=== PATIENT | male | born 1985 | race African-American/Black ===

== ENCOUNTER 2016-04-10 11:21 | Emergency (ER) | payer OTHER ==
[2016-04-10] MEDS ORDERED: ONDANSETRON 4MG/2ML VIAL (J2405) As Ordered ONE (12:39)
[2016-04-10] MEDS ORDERED: KETOROLAC 30 MG/ML VIAL (J1885) As Ordered ONE (12:39)
[2016-04-10 12:45] LABS: BASO % 0.3 % (0.0-1.0); EOS # 0.1 K/mm3 (0.0-0.50); EOS % 2.2 % (0.0-3.0); LARGE UNSTAINED CELL # 0.1 K/mm3 (0.0-0.4); LARGE UNSTAINED CELL % 2.4 % (0.0-4.0); LYMPH # 1.8 K/mm3 (1.5-6.5); LYMPH % 49.6 % (24.0-44.0); MEAN CORPUSCULAR HEMOGLOBIN 28.7 pg (27.0-33.0); MEAN CORPUSCULAR HGB CONC 33.3 g/dl (32.0-36.5); MEAN CORPUSCULAR VOLUME 86.2 fl (80.0-96.0); MONO # 0.2 K/mm3 (0.0-0.8); MONO % 4.6 % (0.0-5.0); NEUTROPHILS # 1.5 K/mm3 (1.8-7.7); NEUTROPHILS % 40.9 % (36.0-66.0); PLATELET COUNT, AUTOMATED 236 k/mm3 (150-450); WHITE BLOOD COUNT 3.6 K/mm3 (4.0-10.0)
[2016-04-10 13:11] LABS: ALBUMIN/GLOBULIN RATIO 0.95 (1.00-1.93); ALKALINE PHOSPHATASE 48 U/L (45-117); ALT/SGPT 53 U/L (12-78); ANION GAP 4 MEQ/L (8-16); AST/SGOT 25 U/L (15-37); BILIRUBIN,DIRECT 0.1 MG/DL (0.0-0.2); BILIRUBIN,TOTAL 0.5 MG/DL (0.2-1.0); BLOOD UREA NITROGEN 14 MG/DL (7-18); CALCIUM LEVEL 8.9 MG/DL (8.5-10.1); CARBON DIOXIDE LEVEL 33 MEQ/L (21-32); CHLORIDE LEVEL 101 MEQ/L (98-107); CREATININE FOR GFR 1.34 MG/DL (0.70-1.30); GLOMERULAR FILTRATION RATE > 60.0 (>60); GLUCOSE, FASTING 81 MG/DL (70-105); POTASSIUM SERUM 4.3 MEQ/L (3.5-5.1); SODIUM LEVEL 138 MEQ/L (136-145); TOTAL PROTEIN 8.2 GM/DL (6.4-8.2)
[2016-04-10] MEDS ORDERED: ISOVUE-370 76% 100ML VIAL (Q9967) As Ordered ONE (13:21)
[2016-04-10] MEDS ORDERED: MORPHINE 2 MG/ML 1ML SYRINGE As Ordered ONE ×2 (13:34→13:41)
--- NOTE | 2016-04-10 14:20 | REP ---
CT ABDOMEN AND PELVIS WITH IV BUT WITHOUT ORAL CONTRAST: HISTORY: Appendicitis. CT contrast dose: 100 mL of Isovue [address] FINDINGS: Preliminary scruff worker radiograph views are unremarkable. The lung bases are clear. There is no evidence of pleural effusion or upper abdominal ascites. The liver and spleen are normal in size and homogeneous in texture on postcontrast imaging. No adrenal lesion is seen. No pancreatic abnormality is noted. The gallbladder is unremarkable. Kidneys enhance symmetrically are morphologically intact. No retroperitoneal mass or adenopathy is observed. A normal appendix is seen over the right pelvic sidewall. No CT evidence of appendicitis is seen. Seminal vesicles, prostate and urinary bladder are unremarkable. No abdominal wall defect is seen. Bone window settings show no bony destructive lesion. There is a small benign exostosis of the right iliac crest posteriorly. IMPRESSION: Normal appendix seen. No CT evidence of appendicitis. No acute intra-abdominal abnormality. Signed by George Guillermo MD 04/10/2016 02:42 P
--- NOTE | 2016-04-10 14:51 | EDDOCDS ---
Nurse's Notes [facility] Name: Luis Alberto Reyes Age: 30 yrs Sex: Male : 1985 Arrival Date: 04/10/2016 Time: 11:21 Bed I5 / M5 [facility] Diagnosis: Abdominal and pelvic pain-RLQ Presentation: 04/10 11:24 Presenting complaint: Patient states: Right lower abdominal pain x 2 days, worse since rs3 3 am this morning. denies nausea/vomiting. Headache since Mar 13 on and off since got back from [place]. Adult Sepsis Screening: The patient does not have new or worsening altered mentation. Patient's respiratory rate is less than 22. Systolic blood pressure is greater than 100. Patient has a qSOFA score of 0- Negative Sepsis Screen. Suicide/Homicide risk assessment- the patient denies having any suicidal and/or homicidal ideations and does not present with any other emotional, behavioral or mental health complaints. 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 Transition of care: patient was not received from another setting of care. 11:24 Acuity: MICHELLE Level 3 rs3 11:24 Method Of Arrival: Walkin/Carried/Asstd rs3 Triage Assessment: 11:27 General: Appears in no apparent distress. Pain: Pain currently is 8 out of 10 on a pain rs3 scale. Pt Declines HIV testing. GI: Reports lower abdominal pain. Historical: - Allergies: Percocet (Rash); - Home Meds: 1. none - PMHx: none; - PSHx: ortho surgery; - Social history: Smoking status: Patient uses tobacco products, light tobacco smoker. No barriers to communication noted, The patient speaks fluent Nepali. - Family history: Not pertinent. - : The pt / caregiver states he / she is not on anticoagulants. Home medication list is obtained from the patient. - Exposure Risk Screening:: None identified. Screenin:32 Screening information is obtained from the patient. Fall risk: No risks identified. kr3 Assistance ADL's: requires no assistance with activities of daily living. Abuse/DV Screen: The patient / caregiver reports he/she is: not in a situation that causes fear, pain or injury. Nutritional screening: No deficits noted. Advance Directives: Currently, there is no health care proxy. home support is adequate. Assessment: 12:46 General: Appears in no apparent distress. Respiratory: No deficits noted. Airway is jmk patent Respiratory effort is even, unlabored, Respiratory pattern is regular, Breath sounds are clear bilaterally. GI: Abdomen is flat, non- distended Bowel sounds present X 4 quads. Abd is soft X 4 quads Abd is tender to palpation in right lower quadrant Abdomen has rebound tenderness in right lower quadrant. 13:37 Reassessment: patient offered Morphine and refused med. Patient in no obvious distress, kr3 talking with Mother on phone. 13:44 General: Appears now requesting morphine. states 7/10 discomfort, and " mother told me dejak to take it". 14:39 General: Appears states pain has decreased to 4/10. ambulates with brisk upright gait/. jmk Vital Signs: 11:22 BP 157 / 75; Pulse 56; Resp 18 S; Temp 97.0(O); Pulse Ox 99% on R/A; Weight 95.25 kg dd6 (R); Height 6 ft. 3 in. (190.50 cm) (R); 13:31 Pain 7/10; kr3 14:20 BP 5 / ???; kr3 14:46 BP 133 / 68; Pulse 52; Resp 16; Temp 98.5; Pulse Ox 98% ; jmk 11:22 Body Mass Index 26.25 (95.25 kg, 190.50 cm) dd6 Vitals: 11:22 Log In Time: April 10, 2016 at 11:20. dd6 ED Course: 11:21 Patient visited by Rubin Honeycutt PCA. dd6 11:21 Patient moved to Waiting dd6 11:22 [facility]. dd6 11:22 Patient moved to Pre RCE dd6 11:27 Triage Initiated rs3 11:48 Patient moved to Triage 1 ms2 12:10 [facility] cc10 12:10 Roni Dorantes MD is Attending Physician. cc10 12:10 Patient visited by Jean Daugherty PA-C. cc10 12:10 Patient visited by Jean Daugherty PA-C. cc10 12:26 Patient moved to I5 / M5 ms2 12:26 Urinalysis Sent. ms2 12:46 Patient visited by Jordan Mantilla RN. jmk 12:46 Inserted saline lock: 20 gauge in left antecubital area. jmk 13:31 Patient visited by Summer Salazar RN. kr3 13:32 The patient / caregiver is instructed regarding the plan of care and ED course. Patient sherrell has correct armband on for positive identification. Placed in gown. Bed in low position. Call light in reach. Side rails up X 1. 13:45 Patient visited by Jordan Mantilla RN. jmk 14:20 Patient visited by Summer Salazar,STEVO. kr3 14:38 CT ABD & PELVIS: IV Contrast Only Returned. EDMS 14:39 Patient visited by Jordan Mantilla RN. jmk 14:44 [facility] is Referral Physician. cc10 14:47 Discontinued lock intact, bleeding controlled, pressure dressing applied, No jmk redness/swelling at site. No procedures done that require assistance. Administered Medications: 12:45 Drug: NS 0.9% 1000 ml Route: IV; Rate: bolus; Site: left antecubital; k 12:45 Drug: Ondansetron 4 mg Route: IVP; Site: left antecubital; k 12:45 Drug: ketorolac 30 mg [ketorolac 30 mg/mL (1 mL) injection solution (1 mL)] Route: IVP; [facility] Site: left antecubital; 13:31 Follow up: Pain 7/10 Adult; Response: Pain is unchanged, physician notified kr3 13:44 Drug: morphine 2 mg Route: IVP; Site: left antecubital; jmk 14:20 Follow up: BP 5 / ??? kr3 Order Results: Lab Order: Basic Metabolic Profile; SPEC'M 04/10/16 12:36 Test: GLUCOSE, FASTING; Value: 81; Range: 70-105; Units: MG/DL; Status: F Test: BLOOD UREA NITROGEN; Value: 14; Range: 7-18; Units: MG/DL; Status: F Test: CREATININE FOR GFR; Value: 1.34; Range: 0.70-1.30; Abnormal: Above high normal; Units: MG/DL; Status: F Test: GLOMERULAR FILTRATION RATE; Value: > 60.0; Range: >60; Status: F Test: SODIUM LEVEL; Value: 138; Range: 136-145; Units: MEQ/L; Status: F Test: POTASSIUM SERUM; Value: 4.3; Range: 3.5-5.1; Units: MEQ/L; Status: F Test: CHLORIDE LEVEL; Value: 101; Range: 98-107; Units: MEQ/L; Status: F Test: CARBON DIOXIDE LEVEL; Value: 33; Range: 21-32; Abnormal: Above high normal; Units: MEQ/L; Status: F Test: ANION GAP; Value: 4; Range: 8-16; Abnormal: Below low normal; Units: MEQ/L; Status: F Test: CALCIUM LEVEL; Value: 8.9; Range: 8.5-10.1; Units: MG/DL; Status: F Test Note: ; Units are mL/min/1.73 m2 Chronic Kidney Disease Staging per NKF: Stage I & II GFR >=60 Normal to Mildly Decreased Stage III GFR 30-59 Moderately Decreased Stage IV GFR 15-29 Severely Decreased Stage V GFR <15 Very Little GFR Left ESRD GFR <15 on D[facility] [employer]ER Lab Order: CBC with Diff; SPEC'M 04/10/16 12:36 Test: WHITE BLOOD COUNT; Value: 3.6; Range: 4.0-10.0; Abnormal: Below low normal; Units: K/mm3; Status: F Test: RED BLOOD COUNT; Value: 5.70; Range: 4.30-6.10; Units: M/mm3; Status: F Test: HEMOGLOBIN; Value: 16.4; Range: 14.0-18.0; Units: g/dl; Status: F Test: HEMATOCRIT; Value: 49.2; Range: 42.0-52.0; Units: %; Status: F Test: MEAN CORPUSCULAR VOLUME; Value: 86.2; Range: 80.0-96.0; Units: fl; Status: F Test: MEAN CORPUSCULAR HEMOGLOBIN; Value: 28.7; Range: 27.0-33.0; Units: pg; Status: F Test: MEAN CORPUSCULAR HGB CONC; Value: 33.3; Range: 32.0-36.5; Units: g/dl; Status: F Test: RED CELL DISTRIBUTION WIDTH; Value: 13.0; Range: 11.5-14.5; Units: %; Status: F Test: PLATELET COUNT, AUTOMATED; Value: 236; Range: 150-450; Units: k/mm3; Status: F Test: NEUTROPHILS %; Value: 40.9; Range: 36.0-66.0; Units: %; Status: F Test: LYMPH %; Value: 49.6; Range: 24.0-44.0; Abnormal: Above high normal; Units: %; Status: F Test: MONO %; Value: 4.6; Range: 0.0-5.0; Units: %; Status: F Test: EOS %; Value: 2.2; Range: 0.0-3.0; Units: %; Status: F Test: BASO %; Value: 0.3; Range: 0.0-1.0; Units: %; Status: F Test: LARGE UNSTAINED CELL %; Value: 2.4; Range: 0.0-4.0; Units: %; Status: F Test: NEUTROPHILS #; Value: 1.5; Range: 1.8-7.7; Abnormal: Below low normal; Units: K/mm3; Status: F Test: LYMPH #; Value: 1.8; Range: 1.5-6.5; Units: K/mm3; Status: F Test: MONO #; Value: 0.2; Range: 0.0-0.8; Units: K/mm3; Status: F Test: EOS #; Value: 0.1; Range: 0.0-0.50; Units: K/mm3; Status: F Test: BASO #; Value: 0.0; Range: 0.0-0.2; Units: K/mm3; Status: F Test: LARGE UNSTAINED CELL #; Value: 0.1; Range: 0.0-0.4; Units: K/mm3; Status: F Lab Order: Lipase; SPEC'M 04/10/16 12:36 Test: LIPASE; Value: 123; Range: 73-393; Units: U/L; Status: F Lab Order: Liver Profile; SPEC'M 04/10/16 12:36 Test: AST/SGOT; Value: 25; Range: 15-37; Units: U/L; Status: F Test: ALT/SGPT; Value: 53; Range: 12-78; Units: U/L; Status: F Test: ALKALINE PHOSPHATASE; Value: 48; Range: 45-117; Units: U/L; Status: F Test: BILIRUBIN,TOTAL; Value: 0.5; Range: 0.2-1.0; Units: MG/DL; Status: F Test: BILIRUBIN,DIRECT; Value: 0.1; Range: 0.0-0.2; Units: MG/DL; Status: F Test: TOTAL PROTEIN; Value: 8.2; Range: 6.4-8.2; Units: GM/DL; Status: F Test: ALBUMIN; Value: 4.0; Range: 3.2-5.2; Units: GM/DL; Status: F Test: ALBUMIN/GLOBULIN RATIO; Value: 0.95; Range: 1.00-1.93; Abnormal: Below low normal; Status: F Lab Order: Urinalysis; SPEC'M 04/10/16 12:26 Test: APPEARANCE, URINE; Value: CLEAR; Range: CLEAR; Status: F Test: COLOR, URINE; Value: YELLOW; Range: YELLOW; Status: F Test: PH,URINE; Value: 6.0; Range: 5.0-9.0; Units: UNITS; Status: F Test: SPECIFIC GRAVITY URINE AUTO; Value: 1.013; Range: 1.002-1.035; Status: F Test: PROTEIN, URINE AUTO; Value: NEGATIVE; Range: NEGATIVE; Units: mg/dL; Status: F Test: GLUCOSE, URINE (UA) AUTO; Value: NEGATIVE; Range: NEGATIVE; Units: mg/dL; Status: F Test: KETONE, URINE AUTO; Value: NEGATIVE; Range: NEGATIVE; Units: mg/dL; Status: F Test: UROBILINOGEN, URINE AUTO; Value: 2.0; Range: 0.0-2.0; Abnormal: Above high normal; Units: mg/dL; Status: F Test: BILIRUBIN, URINE AUTO; Value: NEGATIVE; Range: NEGATIVE; Status: F Test: NITRITE, URINE AUTO; Value: NEGATIVE; Range: NEGATIVE; Status: F Test: LEUKOCYTE ESTERASE, URINE AUTO; Value: NEGATIVE; Range: NEGATIVE; Status: F Test: BLOOD, URINE BLOOD; Value: NEGATIVE; Range: NEGATIVE; Status: F Test: WBC, URINE AUTO; Value: 0; Range: 0-3; Units: /HPF; Status: F Test: RBC, URINE AUTO; Value: 0; Range: 0-3; Units: /HPF; Status: F Test: BACTERIA, URINE AUTO; Value: NEGATIVE; Range: NEGATIVE; Status: F Test: SQUAMOUS EPITHELIAL CELL UR AU; Value: 0; Range: 0-6; Units: /HPF; Status: F Test: HYALINE CAST, URINE AUTO; Value: 0; Range: 0-1; Units: /LPF; Status: F Radiology Order: CT ABD & PELVIS: IV Contrast Only Test: CT ABD & PELVIS: IV Contrast Only REASON FOR EXAMINATION: Appendicitis; CT ABDOMEN AND PELVIS WITH IV BUT WITHOUT ORAL CONTRAST:; ; HISTORY: Appendicitis.; ; CT contrast dose: 100 mL of Isovue 370 is administered intravenously.; ; CT FINDINGS: Preliminary tooth polisher radiograph views are unremarkable. The lung; bases are clear. There is no evidence of pleural effusion or upper abdominal; ascites. The liver and spleen are normal in size and homogeneous in texture on; postcontrast imaging. No adrenal lesion is seen. No pancreatic abnormality is; noted. The gallbladder is unremarkable. Kidneys enhance symmetrically are; morphologically intact. No retroperitoneal mass or adenopathy is observed. A; normal appendix is seen over the right pelvic sidewall. No CT evidence of; appendicitis is seen. Seminal vesicles, prostate and urinary bladder are; unremarkable. No abdominal wall defect is seen. Bone window settings show no; bony destructive lesion. There is a small benign exostosis of the right iliac; crest posteriorly.; ; IMPRESSION:; Normal appendix seen. No CT evidence of appendicitis. No acute intra-abdominal; abnormality.; ; ; ; ; Unreviewed; Outcome: 13:32 CT Study completed. kr3 14:44 Discharge ordered by Provider. cc10 14:49 Discharge Assessment: Patient awake, alert and oriented x 3. No cognitive and/or jmk functional deficits noted. Patient verbalized understanding of disposition instructions. patient administered narcotics - no. The following High Risk Discharge criteria are identified: None. Discharged to home ambulatory. Condition: good. Discharge instructions given to patient, Instructed on discharge instructions, follow up and referral plans. medication usage, Demonstrated understanding of instructions, medications, Pt was receptive of discharge instructions/ teaching. Prescriptions given X 1. Property :Personal belongings accompany Pt. 14:50 Patient left the ED. k Signatures: Dispatcher [employer] EDMS KearneyGuy,RN RN ms2 Annalee,Jordan,RN RN dejak Summer Salazar,RN RN kr3 Rubin Honeycutt, SPA MANAGER SPA MANAGER dd6 Rosa Díaz,RN RN rs3 Dat, Jean, PA-C PA-C cc10 MTDD
--- NOTE | 2016-04-10 14:51 | EDDOCDS ---
Physician Documentation [facility] Name: Luis Alberto Reyes Age: 30 yrs Sex: Male : 1985 Arrival Date: 04/10/2016 Time: 11:21 Bed I5 / M5 [facility] Disposition: 04/10/16 14:44 Discharged to Home/Self Care. Impression: Abdominal and pelvic pain - RLQ. - Condition is Stable. - Discharge Instructions: Abdominal Pain, Adult. - Prescriptions for Bentyl 10 mg Oral Capsule - take 1 capsule by ORAL route every 6 hours As needed; 40 capsule. - Medication Reconciliation, Local Pharmacy Hours form. - Follow up: Emergency Department; When: As needed; Reason: Worsening of conditions. [facility]; When: Call to arrange an appointment; Reason: Wound/Symptom Recheck, Recheck today's complaints, Worsening of conditions, Continuance of care. - Problem is an ongoing problem. - Symptoms have improved. Historical: - Allergies: Percocet (Rash); - Home Meds: 1. none - PMHx: none; - PSHx: ortho surgery; - Social history: Smoking status: Patient uses tobacco products, light tobacco smoker. No barriers to communication noted, The patient speaks fluent Cameroonian. - Family history: Not pertinent. - : The pt / caregiver states he / she is not on anticoagulants. Home medication list is obtained from the patient. - Exposure Risk Screening:: None identified. Vital Signs: 04/10 11:22 BP 157 / 75; Pulse 56; Resp 18 S; Temp 97.0(O); Pulse Ox 99% on R/A; Weight 95.25 kg / dd6 209.99 lbs (R); Height 6 ft. 3 in. (190.50 cm) (R); 13:31 Pain 7/10; kr3 14:20 BP 5 / ???; kr3 14:46 BP 133 / 68; Pulse 52; Resp 16; Temp 98.5; Pulse Ox 98% ; jmk 11:22 Body Mass Index 26.25 (95.25 kg, 190.50 cm) dd6 MDM: 12:18 NS 0.9% 1000 ml IV at bolus once ordered. cc10 12:18 Ondansetron 4 mg IVP once ordered. cc10 12:18 ketorolac 30 mg IVP once ordered. cc10 12:18 IV Saline Lock ordered. cc10 12:18 Undress patient appropriately for examination ordered. cc10 12:19 Basic Metabolic Profile Ordered. EDMS 12:19 CBC with Diff Ordered. EDMS 12:19 Lipase Ordered. EDMS 12:19 Liver Profile Ordered. EDMS 12:19 Urinalysis Ordered. EDMS 12:19 CT ABD & PELVIS: IV Contrast Only Ordered. EDMS 12:19 NOTHING BY MOUTH+DIET ordered. EDMS 13:17 Basic Metabolic Profile Reviewed. cc10 13:17 CBC with Diff Reviewed. cc10 13:17 Liver Profile Reviewed. cc10 13:17 Urinalysis Reviewed. cc10 13:17 Lipase Reviewed. cc10 13:33 morphine 2 mg IVP once ordered. cc10 14:02 Financial registration complete. mm15 Administered Medications: 12:45 Drug: NS 0.9% 1000 ml Route: IV; Rate: bolus; Site: left antecubital; [facility] 12:45 Drug: Ondansetron 4 mg Route: IVP; Site: left antecubital; [facility] 12:45 Drug: ketorolac 30 mg [ketorolac 30 mg/mL (1 mL) injection solution (1 mL)] Route: IVP; [facility] Site: left antecubital; 13:31 Follow up: Pain 7/10 Adult; Response: Pain is unchanged, physician notified 3 13:44 Drug: morphine 2 mg Route: IVP; Site: left antecubital; [facility] 14:20 Follow up: BP 5 / ??? kr3 Signatures: Dispatcher [employer] EDJordan MoffettRN RN dejak Summer SalazarRN RN kr3 Rosa Díaz RN RN rs3 Cas Springer mm15 Jean Daugherty PA-C PAWilder cc10 MTDD
--- NOTE | 2016-04-12 15:51 | EDDOCDS ---
Physician Documentation [facility] Name: Luis Alberto Reyes Age: 30 yrs Sex: Male : 1985 Arrival Date: 04/10/2016 Time: 11:21 Bed I5 / M5 [facility] Disposition: 04/10/16 14:44 Discharged to Home/Self Care. Impression: Abdominal and pelvic pain - RLQ. - Condition is Stable. - Discharge Instructions: Abdominal Pain, Adult. - Prescriptions for Bentyl 10 mg Oral Capsule - take 1 capsule by ORAL route every 6 hours As needed; 40 capsule. - Medication Reconciliation, Local Pharmacy Hours form. - Follow up: Emergency Department; When: As needed; Reason: Worsening of conditions. [facility]; When: Call to arrange an appointment; Reason: Wound/Symptom Recheck, Recheck today's complaints, Worsening of conditions, Continuance of care. - Problem is an ongoing problem. - Symptoms have improved. Historical: - Allergies: Percocet (Rash); - Home Meds: 1. none - PMHx: none; - PSHx: ortho surgery; - Social history: Smoking status: Patient uses tobacco products, light tobacco smoker. No barriers to communication noted, The patient speaks fluent Montserratian. - Family history: Not pertinent. - : The pt / caregiver states he / she is not on anticoagulants. Home medication list is obtained from the patient. - Exposure Risk Screening:: None identified. Vital Signs: 04/10 11:22 BP 157 / 75; Pulse 56; Resp 18 S; Temp 97.0(O); Pulse Ox 99% on R/A; Weight 95.25 kg / dd6 209.99 lbs (R); Height 6 ft. 3 in. (190.50 cm) (R); 13:31 Pain 7/10; kr3 14:20 BP 5 / ???; kr3 14:46 BP 133 / 68; Pulse 52; Resp 16; Temp 98.5; Pulse Ox 98% ; jmk 11:22 Body Mass Index 26.25 (95.25 kg, 190.50 cm) dd6 MDM: 12:18 NS 0.9% 1000 ml IV at bolus once ordered. cc10 12:18 Ondansetron 4 mg IVP once ordered. cc10 12:18 ketorolac 30 mg IVP once ordered. cc10 12:18 IV Saline Lock ordered. cc10 12:18 Undress patient appropriately for examination ordered. cc10 12:19 Basic Metabolic Profile Ordered. EDMS 12:19 CBC with Diff Ordered. EDMS 12:19 Lipase Ordered. EDMS 12:19 Liver Profile Ordered. EDMS 12:19 Urinalysis Ordered. EDMS 12:19 CT ABD & PELVIS: IV Contrast Only Ordered. EDMS 12:19 NOTHING BY MOUTH+DIET ordered. EDMS 13:17 Basic Metabolic Profile Reviewed. cc10 13:17 CBC with Diff Reviewed. cc10 13:17 Liver Profile Reviewed. cc10 13:17 Urinalysis Reviewed. cc10 13:17 Lipase Reviewed. cc10 13:33 morphine 2 mg IVP once ordered. cc10 14:02 Financial registration complete. mm15 15:05 [facility] Payment Agreement was scanned into [employer] and attached to record. mm15 15:35 T-Sheet-- Draft Copy was scanned into [employer] and attached to record. gb Administered Medications: 12:45 Drug: NS 0.9% 1000 ml Route: IV; Rate: bolus; Site: left antecubital; [facility] 12:45 Drug: Ondansetron 4 mg Route: IVP; Site: left antecubital; [facility] 12:45 Drug: ketorolac 30 mg [ketorolac 30 mg/mL (1 mL) injection solution (1 mL)] Route: IVP; [facility] Site: left antecubital; 13:31 Follow up: Pain 7/10 Adult; Response: Pain is unchanged, physician notified kr3 13:44 Drug: morphine 2 mg Route: IVP; Site: left antecubital; k 14:20 Follow up: BP 5 / ??? kr3 Signatures: Dispatcher [employer] EDMS Jordan Mantilla,RN RN dejak Yaneth Madrigal, Howard Reg Summer FreedRN RN kr3 Rosa DíazRN RN gali3 Cas Springer mm15 Jean Daugherty, PALevonC PALevonC cc10 The chart was reviewed and I authenticate all verbal orders and agree with the evaluation and treatment provided.Attachments: 15:05 [facility] Payment Agreement mm15 15:35 T-Sheet-- Draft Copy gb Chart Complete MTDD
--- NOTE | 2016-04-12 15:51 | EDDOCDS ---
Physician Documentation [facility] Name: Luis Alberto Reyes Age: 30 yrs Sex: Male : 1985 Arrival Date: 04/10/2016 Time: 11:21 Bed I5 / M5 [facility] Disposition: 04/10/16 14:44 Discharged to Home/Self Care. Impression: Abdominal and pelvic pain - RLQ. - Condition is Stable. - Discharge Instructions: Abdominal Pain, Adult. - Prescriptions for Bentyl 10 mg Oral Capsule - take 1 capsule by ORAL route every 6 hours As needed; 40 capsule. - Medication Reconciliation, Local Pharmacy Hours form. - Follow up: Emergency Department; When: As needed; Reason: Worsening of conditions. [facility]; When: Call to arrange an appointment; Reason: Wound/Symptom Recheck, Recheck today's complaints, Worsening of conditions, Continuance of care. - Problem is an ongoing problem. - Symptoms have improved. Historical: - Allergies: Percocet (Rash); - Home Meds: 1. none - PMHx: none; - PSHx: ortho surgery; - Social history: Smoking status: Patient uses tobacco products, light tobacco smoker. No barriers to communication noted, The patient speaks fluent Malaysian. - Family history: Not pertinent. - : The pt / caregiver states he / she is not on anticoagulants. Home medication list is obtained from the patient. - Exposure Risk Screening:: None identified. Vital Signs: 04/10 11:22 BP 157 / 75; Pulse 56; Resp 18 S; Temp 97.0(O); Pulse Ox 99% on R/A; Weight 95.25 kg / dd6 209.99 lbs (R); Height 6 ft. 3 in. (190.50 cm) (R); 13:31 Pain 7/10; kr3 14:20 BP 5 / ???; kr3 14:46 BP 133 / 68; Pulse 52; Resp 16; Temp 98.5; Pulse Ox 98% ; jmk 11:22 Body Mass Index 26.25 (95.25 kg, 190.50 cm) dd6 MDM: 12:18 NS 0.9% 1000 ml IV at bolus once ordered. cc10 12:18 Ondansetron 4 mg IVP once ordered. cc10 12:18 ketorolac 30 mg IVP once ordered. cc10 12:18 IV Saline Lock ordered. cc10 12:18 Undress patient appropriately for examination ordered. cc10 12:19 Basic Metabolic Profile Ordered. EDMS 12:19 CBC with Diff Ordered. EDMS 12:19 Lipase Ordered. EDMS 12:19 Liver Profile Ordered. EDMS 12:19 Urinalysis Ordered. EDMS 12:19 CT ABD & PELVIS: IV Contrast Only Ordered. EDMS 12:19 NOTHING BY MOUTH+DIET ordered. EDMS 13:17 Basic Metabolic Profile Reviewed. cc10 13:17 CBC with Diff Reviewed. cc10 13:17 Liver Profile Reviewed. cc10 13:17 Urinalysis Reviewed. cc10 13:17 Lipase Reviewed. cc10 13:33 morphine 2 mg IVP once ordered. cc10 14:02 Financial registration complete. mm15 15:05 [facility] Payment Agreement was scanned into [employer] and attached to record. mm15 15:35 T-Sheet-- Draft Copy was scanned into [employer] and attached to record. gb Administered Medications: 12:45 Drug: NS 0.9% 1000 ml Route: IV; Rate: bolus; Site: left antecubital; [facility] 12:45 Drug: Ondansetron 4 mg Route: IVP; Site: left antecubital; [facility] 12:45 Drug: ketorolac 30 mg [ketorolac 30 mg/mL (1 mL) injection solution (1 mL)] Route: IVP; [facility] Site: left antecubital; 13:31 Follow up: Pain 7/10 Adult; Response: Pain is unchanged, physician notified kr3 13:44 Drug: morphine 2 mg Route: IVP; Site: left antecubital; k 14:20 Follow up: BP 5 / ??? kr3 Signatures: Dispatcher [employer] EDMS Jordan Mantilla,RN RN dejak Yaneth Madrigal, Howard Reg Summer FreedRN RN kr3 Rosa DíazRN RN gali3 Cas Springer mm15 Jean Daugherty, PALevonC PALevonC cc10 The chart was reviewed and I authenticate all verbal orders and agree with the evaluation and treatment provided.Attachments: 15:05 [facility] Payment Agreement mm15 15:35 T-Sheet-- Draft Copy gb Chart Complete MTDD
--- NOTE | 2016-04-12 15:52 | EDDOCDS ---
Nurse's Notes [facility] Name: Luis Alberto Reyes Age: 30 yrs Sex: Male : 1985 Arrival Date: 04/10/2016 Time: 11:21 Bed I5 / M5 [facility] Diagnosis: Abdominal and pelvic pain-RLQ Presentation: 04/10 11:24 Presenting complaint: Patient states: Right lower abdominal pain x 2 days, worse since rs3 3 am this morning. denies nausea/vomiting. Headache since Mar 13 on and off since got back from [place]. Adult Sepsis Screening: The patient does not have new or worsening altered mentation. Patient's respiratory rate is less than 22. Systolic blood pressure is greater than 100. Patient has a qSOFA score of 0- Negative Sepsis Screen. Suicide/Homicide risk assessment- the patient denies having any suicidal and/or homicidal ideations and does not present with any other emotional, behavioral or mental health complaints. 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 Transition of care: patient was not received from another setting of care. 11:24 Acuity: MICHELLE Level 3 rs3 11:24 Method Of Arrival: Walkin/Carried/Asstd rs3 Triage Assessment: 11:27 General: Appears in no apparent distress. Pain: Pain currently is 8 out of 10 on a pain rs3 scale. Pt Declines HIV testing. GI: Reports lower abdominal pain. Historical: - Allergies: Percocet (Rash); - Home Meds: 1. none - PMHx: none; - PSHx: ortho surgery; - Social history: Smoking status: Patient uses tobacco products, light tobacco smoker. No barriers to communication noted, The patient speaks fluent Persian. - Family history: Not pertinent. - : The pt / caregiver states he / she is not on anticoagulants. Home medication list is obtained from the patient. - Exposure Risk Screening:: None identified. Screenin:32 Screening information is obtained from the patient. Fall risk: No risks identified. kr3 Assistance ADL's: requires no assistance with activities of daily living. Abuse/DV Screen: The patient / caregiver reports he/she is: not in a situation that causes fear, pain or injury. Nutritional screening: No deficits noted. Advance Directives: Currently, there is no health care proxy. home support is adequate. Assessment: 12:46 General: Appears in no apparent distress. Respiratory: No deficits noted. Airway is jmk patent Respiratory effort is even, unlabored, Respiratory pattern is regular, Breath sounds are clear bilaterally. GI: Abdomen is flat, non- distended Bowel sounds present X 4 quads. Abd is soft X 4 quads Abd is tender to palpation in right lower quadrant Abdomen has rebound tenderness in right lower quadrant. 13:37 Reassessment: patient offered Morphine and refused med. Patient in no obvious distress, kr3 talking with Mother on phone. 13:44 General: Appears now requesting morphine. states 7/10 discomfort, and " mother told me dejak to take it". 14:39 General: Appears states pain has decreased to 4/10. ambulates with brisk upright gait/. jmk Vital Signs: 11:22 BP 157 / 75; Pulse 56; Resp 18 S; Temp 97.0(O); Pulse Ox 99% on R/A; Weight 95.25 kg dd6 (R); Height 6 ft. 3 in. (190.50 cm) (R); 13:31 Pain 7/10; kr3 14:20 BP 5 / ???; kr3 14:46 BP 133 / 68; Pulse 52; Resp 16; Temp 98.5; Pulse Ox 98% ; jmk 11:22 Body Mass Index 26.25 (95.25 kg, 190.50 cm) dd6 Vitals: 11:22 Log In Time: April 10, 2016 at 11:20. dd6 ED Course: 11:21 Patient visited by Rubin Honeycutt PCA. dd6 11:21 Patient moved to Waiting dd6 11:22 [facility]. dd6 11:22 Patient moved to Pre RCE dd6 11:27 Triage Initiated rs3 11:48 Patient moved to Triage 1 ms2 12:10 [facility]augherty [facility]. cc10 12:10 Roni Dorantes MD is Attending Physician. cc10 12:10 Patient visited by Jean Daugherty PA-C. cc10 12:10 Patient visited by Jean Daugherty PA-C. cc10 12:26 Patient moved to I5 / M5 ms2 12:26 Urinalysis Sent. ms2 12:46 Patient visited by oJrdan Mantilla RN. jmk 12:46 Inserted saline lock: 20 gauge in left antecubital area. jmk 13:31 Patient visited by Summer Salazar RN. kr3 13:32 The patient / caregiver is instructed regarding the plan of care and ED course. Patient sherrell has correct armband on for positive identification. Placed in gown. Bed in low position. Call light in reach. Side rails up X 1. 13:45 Patient visited by Jordan Mantilla RN. dejak 14:20 Patient visited by Summer Salazar,STEVO. kr3 14:38 CT ABD & PELVIS: IV Contrast Only Returned. EDMS 14:39 Patient visited by Jordan Mantilla RN. dejak 14:44 [facility] is Referral Physician. cc10 14:47 Discontinued lock intact, bleeding controlled, pressure dressing applied, No jmk redness/swelling at site. No procedures done that require assistance. 15:05 [facility] Payment Agreement was scanned into [email or web address] and attached to record. mm15 15:31 Patient name changed from Luis Alberto\\S\\\\S\\Eric\\S\\ to Luis Alberto\\S\\ \\S\\Eric. EDMS 15:35 T-Sheet-- Draft Copy was scanned into [employer] and attached to record. gb Administered Medications: 12:45 Drug: NS 0.9% 1000 ml Route: IV; Rate: bolus; Site: left antecubital; dejak 12:45 Drug: Ondansetron 4 mg Route: IVP; Site: left antecubital; darren 12:45 Drug: ketorolac 30 mg [ketorolac 30 mg/mL (1 mL) injection solution (1 mL)] Route: IVP; darren Site: left antecubital; 13:31 Follow up: Pain 7/10 Adult; Response: Pain is unchanged, physician notified kr3 13:44 Drug: morphine 2 mg Route: IVP; Site: left antecubital; dejak 14:20 Follow up: BP 5 / ??? kr3 Order Results: Lab Order: Basic Metabolic Profile; SPEC'M 04/10/16 12:36 Test: GLUCOSE, FASTING; Value: 81; Range: 70-105; Units: MG/DL; Status: F Test: BLOOD UREA NITROGEN; Value: 14; Range: 7-18; Units: MG/DL; Status: F Test: CREATININE FOR GFR; Value: 1.34; Range: 0.70-1.30; Abnormal: Above high normal; Units: MG/DL; Status: F Test: GLOMERULAR FILTRATION RATE; Value: > 60.0; Range: >60; Status: F Test: SODIUM LEVEL; Value: 138; Range: 136-145; Units: MEQ/L; Status: F Test: POTASSIUM SERUM; Value: 4.3; Range: 3.5-5.1; Units: MEQ/L; Status: F Test: CHLORIDE LEVEL; Value: 101; Range: 98-107; Units: MEQ/L; Status: F Test: CARBON DIOXIDE LEVEL; Value: 33; Range: 21-32; Abnormal: Above high normal; Units: MEQ/L; Status: F Test: ANION GAP; Value: 4; Range: 8-16; Abnormal: Below low normal; Units: MEQ/L; Status: F Test: CALCIUM LEVEL; Value: 8.9; Range: 8.5-10.1; Units: MG/DL; Status: F Test Note: ; Units are mL/min/1.73 m2 Chronic Kidney Disease Staging per NKF: Stage I & II GFR >=60 Normal to Mildly Decreased Stage III GFR 30-59 Moderately Decreased Stage IV GFR 15-29 Severely Decreased Stage V GFR <15 Very Little GFR Left ESRD GFR <15 on INTELLIGENCE SPECIALIST Lab Order: CBC with Diff; SPEC'M 04/10/16 12:36 Test: WHITE BLOOD COUNT; Value: 3.6; Range: 4.0-10.0; Abnormal: Below low normal; Units: K/mm3; Status: F Test: RED BLOOD COUNT; Value: 5.70; Range: 4.30-6.10; Units: M/mm3; Status: F Test: HEMOGLOBIN; Value: 16.4; Range: 14.0-18.0; Units: g/dl; Status: F Test: HEMATOCRIT; Value: 49.2; Range: 42.0-52.0; Units: %; Status: F Test: MEAN CORPUSCULAR VOLUME; Value: 86.2; Range: 80.0-96.0; Units: fl; Status: F Test: MEAN CORPUSCULAR HEMOGLOBIN; Value: 28.7; Range: 27.0-33.0; Units: pg; Status: F Test: MEAN CORPUSCULAR HGB CONC; Value: 33.3; Range: 32.0-36.5; Units: g/dl; Status: F Test: RED CELL DISTRIBUTION WIDTH; Value: 13.0; Range: 11.5-14.5; Units: %; Status: F Test: PLATELET COUNT, AUTOMATED; Value: 236; Range: 150-450; Units: k/mm3; Status: F Test: NEUTROPHILS %; Value: 40.9; Range: 36.0-66.0; Units: %; Status: F Test: LYMPH %; Value: 49.6; Range: 24.0-44.0; Abnormal: Above high normal; Units: %; Status: F Test: MONO %; Value: 4.6; Range: 0.0-5.0; Units: %; Status: F Test: EOS %; Value: 2.2; Range: 0.0-3.0; Units: %; Status: F Test: BASO %; Value: 0.3; Range: 0.0-1.0; Units: %; Status: F Test: LARGE UNSTAINED CELL %; Value: 2.4; Range: 0.0-4.0; Units: %; Status: F Test: NEUTROPHILS #; Value: 1.5; Range: 1.8-7.7; Abnormal: Below low normal; Units: K/mm3; Status: F Test: LYMPH #; Value: 1.8; Range: 1.5-6.5; Units: K/mm3; Status: F Test: MONO #; Value: 0.2; Range: 0.0-0.8; Units: K/mm3; Status: F Test: EOS #; Value: 0.1; Range: 0.0-0.50; Units: K/mm3; Status: F Test: BASO #; Value: 0.0; Range: 0.0-0.2; Units: K/mm3; Status: F Test: LARGE UNSTAINED CELL #; Value: 0.1; Range: 0.0-0.4; Units: K/mm3; Status: F Lab Order: Lipase; SPEC'M 04/10/16 12:36 Test: LIPASE; Value: 123; Range: 73-393; Units: U/L; Status: F Lab Order: Liver Profile; SPEC'M 04/10/16 12:36 Test: AST/SGOT; Value: 25; Range: 15-37; Units: U/L; Status: F Test: ALT/SGPT; Value: 53; Range: 12-78; Units: U/L; Status: F Test: ALKALINE PHOSPHATASE; Value: 48; Range: 45-117; Units: U/L; Status: F Test: BILIRUBIN,TOTAL; Value: 0.5; Range: 0.2-1.0; Units: MG/DL; Status: F Test: BILIRUBIN,DIRECT; Value: 0.1; Range: 0.0-0.2; Units: MG/DL; Status: F Test: TOTAL PROTEIN; Value: 8.2; Range: 6.4-8.2; Units: GM/DL; Status: F Test: ALBUMIN; Value: 4.0; Range: 3.2-5.2; Units: GM/DL; Status: F Test: ALBUMIN/GLOBULIN RATIO; Value: 0.95; Range: 1.00-1.93; Abnormal: Below low normal; Status: F Lab Order: Urinalysis; SPEC'M 04/10/16 12:26 Test: APPEARANCE, URINE; Value: CLEAR; Range: CLEAR; Status: F Test: COLOR, URINE; Value: YELLOW; Range: YELLOW; Status: F Test: PH,URINE; Value: 6.0; Range: 5.0-9.0; Units: UNITS; Status: F Test: SPECIFIC GRAVITY URINE AUTO; Value: 1.013; Range: 1.002-1.035; Status: F Test: PROTEIN, URINE AUTO; Value: NEGATIVE; Range: NEGATIVE; Units: mg/dL; Status: F Test: GLUCOSE, URINE (UA) AUTO; Value: NEGATIVE; Range: NEGATIVE; Units: mg/dL; Status: F Test: KETONE, URINE AUTO; Value: NEGATIVE; Range: NEGATIVE; Units: mg/dL; Status: F Test: UROBILINOGEN, URINE AUTO; Value: 2.0; Range: 0.0-2.0; Abnormal: Above high normal; Units: mg/dL; Status: F Test: BILIRUBIN, URINE AUTO; Value: NEGATIVE; Range: NEGATIVE; Status: F Test: NITRITE, URINE AUTO; Value: NEGATIVE; Range: NEGATIVE; Status: F Test: LEUKOCYTE ESTERASE, URINE AUTO; Value: NEGATIVE; Range: NEGATIVE; Status: F Test: BLOOD, URINE BLOOD; Value: NEGATIVE; Range: NEGATIVE; Status: F Test: WBC, URINE AUTO; Value: 0; Range: 0-3; Units: /HPF; Status: F Test: RBC, URINE AUTO; Value: 0; Range: 0-3; Units: /HPF; Status: F Test: BACTERIA, URINE AUTO; Value: NEGATIVE; Range: NEGATIVE; Status: F Test: SQUAMOUS EPITHELIAL CELL UR AU; Value: 0; Range: 0-6; Units: /HPF; Status: F Test: HYALINE CAST, URINE AUTO; Value: 0; Range: 0-1; Units: /LPF; Status: F Radiology Order: CT ABD & PELVIS: IV Contrast Only Test: CT ABD & PELVIS: IV Contrast Only REASON FOR EXAMINATION: Appendicitis; CT ABDOMEN AND PELVIS WITH IV BUT WITHOUT ORAL CONTRAST:; ; HISTORY: Appendicitis.; ; CT contrast dose: 100 mL of Isovue 370 is administered intravenously.; ; CT FINDINGS: Preliminary underwriter radiograph views are unremarkable. The lung; bases are clear. There is no evidence of pleural effusion or upper abdominal; ascites. The liver and spleen are normal in size and homogeneous in texture on; postcontrast imaging. No adrenal lesion is seen. No pancreatic abnormality is; noted. The gallbladder is unremarkable. Kidneys enhance symmetrically are; morphologically intact. No retroperitoneal mass or adenopathy is observed. A; normal appendix is seen over the right pelvic sidewall. No CT evidence of; appendicitis is seen. Seminal vesicles, prostate and urinary bladder are; unremarkable. No abdominal wall defect is seen. Bone window settings show no; bony destructive lesion. There is a small benign exostosis of the right iliac; crest posteriorly.; ; IMPRESSION: Normal appendix seen. No CT evidence of appendicitis. No acute; intra-abdominal abnormality.; ; ; Signed by; George Guillermo MD 04/10/2016 02:42 P; Outcome: 13:32 CT Study completed. kr3 14:44 Discharge ordered by Provider. cc10 14:49 Discharge Assessment: Patient awake, alert and oriented x 3. No cognitive and/or jmk functional deficits noted. Patient verbalized understanding of disposition instructions. patient administered narcotics - no. The following High Risk Discharge criteria are identified: None. Discharged to home ambulatory. Condition: good. Discharge instructions given to patient, Instructed on discharge instructions, follow up and referral plans. medication usage, Demonstrated understanding of instructions, medications, Pt was receptive of discharge instructions/ teaching. Prescriptions given X 1. Property :Personal belongings accompany Pt. 14:50 Patient left the ED. darren Signatures: Dispatcher [employer] EDMS Guy Kearney,RN RN ms2 Jordan MantillaRN RN Yaneth Sorensen, Reg Reg gb Summer SalazarRN RN kr3 Rubin Honeycutt, HEAD STOCK TRANSFER CLERK HEAD STOCK TRANSFER CLERK dd6 Rosa DíazRN RN rs3 Cas Springer mm15 Jean Daugherty, PA-C PA-C cc10 Chart Complete LAXMI
== END 2016-04-10 14:50 | disposition home or self-care (01) ==
LOC: M ED 11:21
DX: R10.31 Right lower quadrant pain (principal); R19.7 Diarrhea, unspecified; F17.210 Nicotine dependence, cigarettes, uncomplicated; Z88.5 Allergy status to narcotic agent
CPT/HCPCS: 74177; 80048; 80076; 81001; 83690; 85025; 96374; 96375; 99284; J1885; J2405; Q9967

== ENCOUNTER 2016-06-12 12:30 | Emergency (ER) | payer OTHER ==
[~2016-06-12] VITALS: Ht 188 cm; Wt 97.5 kg
[2016-06-12] MEDS ORDERED: NS 1,000 ML IV ONE (13:45)
[2016-06-12] MEDS ORDERED: ONDANSETRON 4MG/2ML VIAL (J2405) IV ONE (13:45)
[2016-06-12] MEDS ORDERED: MORPHINE 4 MG/ML 1ML SYRINGE IV ONE (13:45)
[2016-06-12 14:07] LABS: BASO % 0.5 % (0.0-1.0); EOS # 0.1 K/mm3 (0.0-0.50); EOS % 1.9 % (0.0-3.0); LARGE UNSTAINED CELL # 0.1 K/mm3 (0.0-0.4); LARGE UNSTAINED CELL % 1.7 % (0.0-4.0); LYMPH % 46.4 % (24.0-44.0); MEAN CORPUSCULAR HEMOGLOBIN 28.6 pg (27.0-33.0); MEAN CORPUSCULAR HGB CONC 33.5 g/dl (32.0-36.5); MEAN CORPUSCULAR VOLUME 85.4 fl (80.0-96.0); MONO # 0.3 K/mm3 (0.0-0.8); MONO % 6.3 % (0.0-5.0); NEUTROPHILS # 1.8 K/mm3 (1.8-7.7); NEUTROPHILS % 43.3 % (36.0-66.0); PLATELET COUNT, AUTOMATED 219 k/mm3 (150-450); RED CELL DISTRIBUTION WIDTH 12.5 % (11.5-14.5); WHITE BLOOD COUNT 4.2 K/mm3 (4.0-10.0)
[2016-06-12 14:28] LABS: ALBUMIN 3.9 GM/DL (3.2-5.2); ALBUMIN/GLOBULIN RATIO 1.05 (1.00-1.93); ALKALINE PHOSPHATASE 54 U/L (45-117); ALT/SGPT 38 U/L (12-78); AMYLASE 58 U/L (25-115); ANION GAP 4 MEQ/L (8-16); AST/SGOT 18 U/L (15-37); BILIRUBIN,DIRECT 0.1 MG/DL (0.0-0.2); BILIRUBIN,TOTAL 0.8 MG/DL (0.2-1.0); BLOOD UREA NITROGEN 15 MG/DL (7-18); CALCIUM LEVEL 8.9 MG/DL (8.5-10.1); CARBON DIOXIDE LEVEL 33 MEQ/L (21-32); CHLORIDE LEVEL 103 MEQ/L (98-107); CREATININE FOR GFR 1.32 MG/DL (0.70-1.30); GLOMERULAR FILTRATION RATE > 60.0 (>60); GLUCOSE, FASTING 66 MG/DL (70-105); POTASSIUM SERUM 3.9 MEQ/L (3.5-5.1); SODIUM LEVEL 140 MEQ/L (136-145); TOTAL PROTEIN 7.6 GM/DL (6.4-8.2)
[2016-06-12] MEDS ORDERED: ISOVUE-370 76% 100ML VIAL (Q9967) As Ordered ONE (14:40)
[2016-06-12] MEDS ORDERED: MIRA3350 PO (15:02)
--- NOTE | 2016-06-12 15:03 | REP ---
Clinical: Right lower quadrant pain. Technique: Axial contrast enhanced images from the lung bases to the pubic symphysis using oral and 100 ml Isovue 370 intravenous contrast material with coronal and sagittal re-formations. Comparison: 04/10/2016. Findings: Lung bases clear. Visualized heart and pericardium normal. Liver, spleen, pancreas, gallbladder, bilateral adrenal glands and kidneys are normal. The enteric system suggests mild fecal stasis without obstruction or acute inflammatory process. Normal terminal ileum and appendix identified in the right lower quadrant. Pelvis demonstrates normal bladder and age appropriate prostate/seminal vesicles. No free air. No free fluid. No intraperitoneal or retroperitoneal adenopathy. Abdominal aorta and vasculature normal. Surrounding musculoskeletal structures intact. Impression: Normal contrast enhanced CT of the abdomen and pelvis. No evidence for appendicitis. Mild fecal stasis and constipation cannot be excluded. Signed by Man Ibarra MD 06/12/2016 02:55 P
[2016-06-12 15:07] VITALS: BP 104/57
== END 2016-06-12 15:25 | disposition home or self-care (01) ==
LOC: M ED 13:57
DX: K59.00 Constipation, unspecified (principal); Z88.5 Allergy status to narcotic agent
CPT/HCPCS: 74177; 80048; 80076; 82150; 83690; 85025; 96374; 96375; 99283; J2405; Q9967

== ENCOUNTER 2016-08-30 14:38 | Emergency (ER) | payer OTHER ==
[~2016-08-30] VITALS: Ht 190.5 cm; Wt 93.4 kg
[~2016-08-30 14:38] MED LIST: MIRA3350 PO
[2016-08-30] MEDS ORDERED: IBUPROFEN 600 MG TAB PO ONE (15:30)
[2016-08-30] MEDS ORDERED: NORCO, ANEXSIA 5/325MG TABLET (HYDROcodone/ACETAMINOPHEN) PO ONE (15:30)
[2016-08-30 16:14] VITALS: BP 136/68
== END 2016-08-30 16:30 | disposition home or self-care (01) ==
LOC: M ED 15:28
DX: S73.101A Unspecified sprain of right hip, initial encounter (principal); X50.9XXA Other and unspecified overexertion or strenuous movements or postures, initial encounter; Y92.830 Public park as the place of occurrence of the external cause; Y93.64 Activity, baseball; Y99.9 Unspecified external cause status; Z88.5 Allergy status to narcotic agent

== ENCOUNTER → 2016-10-07 | Outpatient (CLI) | payer OTHER ==
[~2016-10-07] VITALS: Ht 190.5 cm; Wt 93.4 kg
[~2016-10-07] MED LIST changes: +NS 1,000 ML IV ONE; +PROPOFOL 200 MG/20 ML VIAL As Ordered ONE; +REGL10TA6 PO
--- NOTE | 2016-10-07 11:00 | ROOR ---
Patient Name: Luis Alberto Reyes Procedure Date: 10/07/2016 10:28 AM Date of : 1985 Age: 31 Room: [facility] Gender: Male Note Status: Finalized Procedure: Colonoscopy Indications: Abdominal pain in the right lower quadrant Providers: Miguel Maldonado MD Referring MD: Tien Negron Requesting Provider: Medicines: Monitored Anesthesia Care Complications: No immediate complications. Procedure: Pre-Anesthesia Assessment: - Prior to the procedure, a History and Physical was performed, and patient medications and allergies were reviewed. The patient is competent. The risks and benefits of the procedure and the sedation options and risks were discussed with the patient. All questions were answered and informed consent was obtained. Patient identification and proposed procedure were verified by the physician, the nurse and the anesthesiologist in the pre-procedure area in the endoscopy suite. Mental Status Examination: alert and oriented. Airway Examination: normal oropharyngeal airway and neck mobility. Respiratory Examination: clear to auscultation. CV Examination: normal. Prophylactic Antibiotics: The patient does not require prophylactic antibiotics. Prior Anticoagulants: The patient has taken no previous anticoagulant or antiplatelet agents. ASA Grade Assessment: I - A normal, healthy patient. After reviewing the risks and benefits, the patient was deemed in satisfactory condition to undergo the procedure. The anesthesia plan was to use monitored anesthesia care (MAC). Immediately prior to administration of medications, the patient was re-assessed for adequacy to receive sedatives. The heart rate, respiratory rate, oxygen saturations, blood pressure, adequacy of pulmonary ventilation, and response to care were monitored throughout the procedure. The physical status of the patient was re-assessed after the procedure. The Colonoscope was introduced through the anus and advanced to the terminal ileum, with identification of the appendiceal orifice and IC valve. The colonoscopy was performed without difficulty. The patient tolerated the procedure well. The quality of the bowel preparation was good. Findings: The perianal and digital rectal examinations were normal. The colon (entire examined portion) appeared normal. The terminal ileum appeared normal. This was biopsied with a cold forceps for histology. Estimated blood loss was minimal. The retroflexed view of the distal rectum and anal verge was normal and showed no anal or rectal abnormalities. Impression: - The entire examined colon is normal. - The examined portion of the ileum was normal. Biopsied. - The distal rectum and anal verge are normal on retroflexion view. Recommendation: - Discharge patient to home. - Telephone my office for pathology results in 2 weeks. Miguel Maldonado MD Miguel Maldonado MD 10/07/2016 10:59:42 AM This report has been signed electronically. Number of Addenda: 0 Note Initiated On: 10/07/2016 10:28 AM Estimated Blood Loss: Estimated blood loss was minimal.
[2016-10-07 11:16] VITALS: BP 147/76
== END | disposition home or self-care (01) ==
LOC: M OPP 09:42
PROVIDERS: ATTEND Surgery
DX: R10.31 Right lower quadrant pain (principal); Z88.5 Allergy status to narcotic agent; F17.210 Nicotine dependence, cigarettes, uncomplicated

== ENCOUNTER 2016-10-09 10:55 | Emergency (ER) | payer OTHER ==
[~2016-10-09] VITALS: Ht 188 cm; Wt 93.9 kg
[~2016-10-09 10:55] MED LIST changes: -NS 1,000 ML IV ONE; -PROPOFOL 200 MG/20 ML VIAL As Ordered ONE; -REGL10TA6 PO
[2016-10-09] MEDS ORDERED: NS 1,000 ML IV SCH (11:16)
[2016-10-09] MEDS ORDERED: MORPHINE 2 MG/ML 1ML SYRINGE IV ONE (11:30)
[2016-10-09] MEDS ORDERED: ONDANSETRON 4MG/2ML VIAL (J2405) IV ONE ×2 (11:30→11:45)
[2016-10-09] MEDS ORDERED: VANCOMYCIN HCL 1,000 MG, VIAL MATE ADAPTER 1 EACH in D5W 250 ML IV ONE (11:30)
[2016-10-09] MEDS ORDERED: ONDANSETRON 4MG/2ML VIAL (J2405) As Ordered ONE (11:36)
[2016-10-09] MEDS ORDERED: NS 1,000 ML IV ONE (11:45)
[2016-10-09] MEDS ORDERED: GASTROGRAFIN SOLUTION 30ML (Q9963) PO ONE ×2 (11:55→12:25)
[2016-10-09 11:57] LABS: BASO % 1.3 % (0.0-1.0); EOS # 0.1 K/mm3 (0.0-0.50); EOS % 1.7 % (0.0-3.0); LARGE UNSTAINED CELL # 0.1 K/mm3 (0.0-0.4); LARGE UNSTAINED CELL % 1.9 % (0.0-4.0); LYMPH # 1.9 K/mm3 (1.5-6.5); LYMPH % 49.9 % (24.0-44.0); MEAN CORPUSCULAR HEMOGLOBIN 29.1 pg (27.0-33.0); MEAN CORPUSCULAR HGB CONC 33.6 g/dl (32.0-36.5); MEAN CORPUSCULAR VOLUME 86.6 fl (80.0-96.0); MONO # 0.2 K/mm3 (0.0-0.8); MONO % 5.5 % (0.0-5.0); NEUTROPHILS # 1.5 K/mm3 (1.8-7.7); NEUTROPHILS % 39.7 % (36.0-66.0); PLATELET COUNT, AUTOMATED 213 k/mm3 (150-450); RED CELL DISTRIBUTION WIDTH 13.2 % (11.5-14.5); WHITE BLOOD COUNT 3.7 K/mm3 (4.0-10.0)
[2016-10-09] MEDS ORDERED: GASTROGRAFIN SOLUTION 30ML (Q9963) As Ordered ONE (11:58)
[2016-10-09 12:10] LABS: ANION GAP 5 MEQ/L (8-16); BLOOD UREA NITROGEN 16 MG/DL (7-18); CALCIUM LEVEL 8.8 MG/DL (8.5-10.1); CARBON DIOXIDE LEVEL 29 MEQ/L (21-32); CHLORIDE LEVEL 104 MEQ/L (98-107); CREATININE FOR GFR 1.22 MG/DL (0.70-1.30); GLOMERULAR FILTRATION RATE > 60.0 (>60); GLUCOSE, FASTING 76 MG/DL (70-105); POTASSIUM SERUM 3.8 MEQ/L (3.5-5.1); SODIUM LEVEL 138 MEQ/L (136-145)
[2016-10-09] MEDS ORDERED: ISOVUE-370 76% 100ML VIAL (Q9967) As Ordered ONE (12:16)
[2016-10-09 12:29] LABS: ERYTHROCYTE SEDIMENTATION RATE 2 mm/hr (0-15)
--- NOTE | 2016-10-09 14:05 | REP ---
CT ABDOMEN AND PELVIS WITH IV CONTRAST: TECHNIQUE: Axial contrast enhanced images from the lung bases to the pubic symphysis using 100 mL Isovue 370 intravenous contrast material with multiplanar reformations. The visualized lung bases are clear. Liver, spleen, adrenals, pancreas and kidneys are normal in appearance. There is no adenopathy. There is no free air or free fluid. There is no abdominal aortic aneurysm. No bowel wall thickening is seen. There is no evidence of appendicitis. No pelvic mass is seen. The urinary bladder is mildly distended and appears unremarkable. IMPRESSION: Negative CT abdomen and pelvis with IV contrast. No evidence of appendicitis. No free air or free fluid. Signed by Nestor White MD 10/09/2016 08:18 P
[2016-10-09 14:24] VITALS: BP 164/86
== END 2016-10-09 14:43 | disposition home or self-care (01) ==
LOC: M ED 10:55
DX: R10.31 Right lower quadrant pain (principal); Z88.5 Allergy status to narcotic agent
CPT/HCPCS: 74177; 80048; 85025; 85652; 86140; 96361; 96374; 96375; 99283; J2405; Q9963; Q9967

== ENCOUNTER 2016-10-25 18:56 | Emergency (ER) | payer OTHER ==
[2016-10-25] MEDS ORDERED: diphenhydrAMINE INJ 50MG/ML VIAL (J1200) IV STA (19:51)
[2016-10-25] MEDS ORDERED: ASPIRIN 81 MG CHEW TABLET PO ONE (20:00)
[2016-10-25] MEDS ORDERED: NS 1,000 ML IV ONE (20:00)
[2016-10-25] MEDS ORDERED: KETOROLAC 30 MG/ML VIAL (J1885) IV ONE (20:00)
[2016-10-25] MEDS ORDERED: METOCLOPRAMIDE INJ 10MG/2ML VIAL (J2765) IV ONE (20:00)
[2016-10-25 20:02] LABS: BASO % 0.5 % (0.0-1.0); EOS # 0.1 K/mm3 (0.0-0.50); EOS % 1.6 % (0.0-3.0); LARGE UNSTAINED CELL # 0.1 K/mm3 (0.0-0.4); LARGE UNSTAINED CELL % 1.9 % (0.0-4.0); LYMPH # 2.2 K/mm3 (1.5-6.5); LYMPH % 44.3 % (24.0-44.0); MEAN CORPUSCULAR HGB CONC 34.4 g/dl (32.0-36.5); MEAN CORPUSCULAR VOLUME 84.3 fl (80.0-96.0); MONO # 0.2 K/mm3 (0.0-0.8); NEUTROPHILS # 2.3 K/mm3 (1.8-7.7); NEUTROPHILS % 47.7 % (36.0-66.0); PLATELET COUNT, AUTOMATED 232 k/mm3 (150-450); RED CELL DISTRIBUTION WIDTH 12.8 % (11.5-14.5); WHITE BLOOD COUNT 4.7 K/mm3 (4.0-10.0)
[2016-10-25 20:07] LABS: INR 1.01
[2016-10-25 20:14] LABS: ALBUMIN 3.7 GM/DL (3.2-5.2); ALBUMIN/GLOBULIN RATIO 1.23 (1.00-1.93); ALKALINE PHOSPHATASE 47 U/L (45-117); ALT/SGPT 30 U/L (12-78); ANION GAP 11 MEQ/L (8-16); AST/SGOT 17 U/L (15-37); BILIRUBIN,DIRECT 0.2 MG/DL (0.0-0.2); BLOOD UREA NITROGEN 15 MG/DL (7-18); CARBON DIOXIDE LEVEL 26 MEQ/L (21-32); CHLORIDE LEVEL 106 MEQ/L (98-107); CREATININE FOR GFR 1.26 MG/DL (0.70-1.30); GLOMERULAR FILTRATION RATE > 60.0 (>60); GLUCOSE, FASTING 90 MG/DL (70-105); POTASSIUM SERUM 3.6 MEQ/L (3.5-5.1); SODIUM LEVEL 143 MEQ/L (136-145); TOTAL PROTEIN 6.7 GM/DL (6.4-8.2)
--- NOTE | 2016-10-25 22:00 | REPUSA ---
HISTORY: HEADACHE. TECHNIQUE: Axial CT of head without contrast. DLP= 835.2 mGy-cm FINDINGS: Ventricles and sulci are of normal size for this age group. White-white matter differentiati on is intact. There is no evidence of intracranial mass, mass effect, hemorrhage, or cystic lesion id entified. There is no detectable evidence of infarct. No bony lesions are seen in the calvarium or sk ull base. Paranasal sinuses and mastoid sinuses are clear. IMPRESSION: Negative noncontrast head CT examination.
[2016-10-25] MEDS ORDERED: REGL10TA6 PO (22:19)
[2016-10-25 22:33] VITALS: BP 111/55
--- NOTE | 2016-10-26 05:57 | ECGEPIP ---
Stationary ECG Study [facility] - ED Test Date: 2016-10-25 Pat Name: WANG SAMUEL Department: Room: - Gender: M Death Claim Clerk: rodger : 1985 Requested By: Logan Chambers Order Number: [id number] Reading MD: Logan Huang Measurements Intervals [place] Rate: 57 P: 40 AK: 177 QRS: 71 QRSD: 102 T: 12 QT: 388 QTc: 380 Interpretive Statements SINUS BRADYCARDIA BENIGN EARLY REPOLARIZATION NONSPECIFIC T-WAVE ABNORMALITY NO PRIORS Electronically Signed On 10-26-2016 5:57:46 EDT by Logan Huang
--- NOTE | 2016-10-26 07:43 | REP ---
PA and lateral chest: There are no comparisons. The lung lara are clear. The cardiac size is normal The [place], mediastinum, and bony thorax are unremarkable. Impression: Negative PA and lateral chest. Signed by Nestor Morin MD 10/26/2016 07:35 A
== END 2016-10-25 22:39 | disposition home or self-care (01) ==
LOC: M ED 18:56
DX: R07.89 Other chest pain (principal); Z72.0 Tobacco use
CPT/HCPCS: 70450; 71020; 80048; 80076; 82550; 82553; 85025; 85610; 93005; 93041; 94760; 96374; 96375; 99284; G0480; J1200; J1885; J2765

== ENCOUNTER 2017-04-08 09:21 | Emergency (ER) | payer OTHER | END 2017-04-08 09:32 | disposition home or self-care (01) | LOC: M ED 09:21 | DX: J32.9 Chronic sinusitis, unspecified (principal); H69.93 Unspecified Eustachian tube disorder, bilateral; R05 Cough; Z88.5 Allergy status to narcotic agent | CPT/HCPCS: 99283 ==